=== PATIENT | female | born 1995 | race Caucasian/White ===

== ENCOUNTER 2016-08-24 21:52 | Emergency (ER) | payer OTHER ==
[2016-08-24 22:04] VITALS: TEMP 99.1
[2016-08-24 23:09] LABS: BASO % 0.5 % (0.0-2.0); EOS # 0.1 (0.0-0.7); EOS % 1.1 % (0-4.0); GRAN # 3.4 (1.4-6.5); LYMPH # 3.6 (1.2-3.4); LYMPH % 43.7 % (20.0-51.0); MEAN CELL VOLUME 82 fl (80.0-95.0); MEAN CORPUSCULAR HGB CONC 32 g/dl (33.0-37.0); MEAN PLATELET VOLUME 11.1 fl (7.4-10.4); MONO % 12.5 % (1.7-9.3); PLATELET COUNT 254 K/mm3 (130-400); RED BLOOD COUNT 4.32 M/mm3 (4.10-5.30); REDCELL DISTRIBUTION WIDTH-CV 15.6 % (11.5-14.5); WHITE BLOOD COUNT 8.2 K/mm3 (4.8-10.8)
[2016-08-24 23:10] LABS: HEMATOCRIT 35.4 % (35.0-45.0); HEMOGLOBIN 11.3 g/dl (12.0-15.0); MEAN CORPUSCULAR HEMOGLOBIN 26 pg (26.0-32.0)
[2016-08-24 23:19] LABS: ADJUSTED CALCIUM 9.7 mg/dL (8.4-10.2); ALBUMIN 4.3 gm/dL (3.5-5.0); BILIRUBIN,TOTAL 0.5 mg/dL (0.0-1.0); CALCIUM 9.9 mg/dL (8.4-10.2); CREATININE, serum 0.5 mg/dL (0.52-1.25); POTASSIUM 3.8 mmol/L (3.4-5.0); TOTAL PROTEIN 7.7 gm/dL (6.4-8.2)
[2016-08-24 23:30] LABS: PH 6 (5-8); SQUAMOUS EPITHELIAL 0-2 /hpf; URINE APPEARANCE Clear; URINE BACTERIA Rare /hpf; URINE BILIRUBIN Negative (NEGATIVE); URINE BLOOD Negative (NEGATIVE); URINE COLOR Yellow; URINE GLUCOSE Negative (NEGATIVE); URINE KETONE Negative (NEGATIVE); URINE RBC 0-2 /hpf; URINE UROBILINOGEN Negative (NEGATIVE); URINE WBC 0-2 /hpf
[2016-08-25] MEDS ORDERED: VOLTAREN 75 DR75 MG PO (00:43)
[2016-08-25 01:04] VITALS: BP 98/68; PULSE 77
[2016-08-26] MEDS ORDERED: NORCO 325 MG-51 TAB PO (15:58)
[2016-08-26] MEDS ORDERED: ZOFRAN ODT4 MG PO (15:58)
== END 2016-08-25 01:08 | disposition home or self-care (01) ==
LOC: COL.ER 21:52
PROVIDERS: Emergency Medicine
DX: R10.11 Right upper quadrant pain (principal)
CPT/HCPCS: J1170; J2550; J7030; Q9967

== ENCOUNTER 2016-08-26 12:13 | Emergency (ER) | payer OTHER ==
[~2016-08-26] VITALS: Ht 167.6 cm; Wt 68.2 kg
[~2016-08-26 12:13] MED LIST: VOLTAREN 75 DR75 MG PO
[2016-08-26 12:40] LABS: BASO % 0.4 % (0.0-2.0); EOS # 0.1 (0.0-0.7); EOS % 0.6 % (0-4.0); GRAN # 5.5 (1.4-6.5); GRAN % 64.3 % (42.2-75.2); HEMATOCRIT 38.5 % (35.0-45.0); LYMPH # 2.2 (1.2-3.4); LYMPH % 25.9 % (20.0-51.0); MEAN CELL VOLUME 83 fl (80.0-95.0); MEAN CORPUSCULAR HEMOGLOBIN 26 pg (26.0-32.0); MEAN CORPUSCULAR HGB CONC 31 g/dl (33.0-37.0); MEAN PLATELET VOLUME 10.9 fl (7.4-10.4); MONO # 0.7 (0.1-0.6); MONO % 8.3 % (1.7-9.3); PLATELET COUNT 255 K/mm3 (130-400); RED BLOOD COUNT 4.63 M/mm3 (4.10-5.30); REDCELL DISTRIBUTION WIDTH-CV 15.7 % (11.5-14.5); WHITE BLOOD COUNT 8.5 K/mm3 (4.8-10.8)
[2016-08-26 12:53] LABS: ADJUSTED CALCIUM 9.8 mg/dL (8.4-10.2); ALBUMIN 4.4 gm/dL (3.5-5.0); BILIRUBIN,TOTAL 0.7 mg/dL (0.0-1.0); CALCIUM 10.1 mg/dL (8.4-10.2); CREATININE, serum 0.56 mg/dL (0.52-1.25); POTASSIUM 3.9 mmol/L (3.4-5.0)
[2016-08-26 12:55] LABS: C-REACTIVE PROTEIN 0.5 mg/dL (0.0-0.9)
[2016-08-26] MEDS ORDERED: ZOFRAN ODT4 MG PO (15:58)
[2016-08-26] MEDS ORDERED: NORCO 325 MG-51 TAB PO (15:58)
[2016-08-26 17:02] VITALS: BP 128/76; PULSE 80; TEMP 98
== END 2016-08-26 17:05 | disposition home or self-care (01) ==
LOC: COL.ER 12:13
PROVIDERS: Emergency Medicine
DX: R10.11 Right upper quadrant pain (principal); R19.01 Right upper quadrant abdominal swelling, mass and lump
CPT/HCPCS: J2270; J2405; J7030

== ENCOUNTER 2016-08-29 13:45 | Inpatient (IN) | payer OTHER ==
[~2016-08-29] VITALS: Ht 167.6 cm; Wt 71.7 kg
[~2016-08-29 13:45] MED LIST changes: +NORCO 325 MG-51 TAB PO; +ZOFRAN ODT4 MG PO
[2016-08-31] VITALS (11 sets, daily range): BP systolic 97–129; BP diastolic 53–86; PULSE 66–78; TEMP 97–98
[2016-08-31 09:16] LABS: BASO % 0.4 % (0.0-2.0); EOS % 0.6 % (0-4.0); GRAN # 3.6 (1.4-6.5); GRAN % 52.5 % (42.2-75.2); HEMATOCRIT 40.2 % (35.0-45.0); HEMOGLOBIN 12.8 g/dl (12.0-15.0); LYMPH # 2.3 (1.2-3.4); LYMPH % 32.9 % (20.0-51.0); MEAN CELL VOLUME 81 fl (80.0-95.0); MEAN CORPUSCULAR HEMOGLOBIN 26 pg (26.0-32.0); MEAN CORPUSCULAR HGB CONC 32 g/dl (33.0-37.0); MONO # 0.9 (0.1-0.6); MONO % 13.2 % (1.7-9.3); PLATELET COUNT 267 K/mm3 (130-400); RED BLOOD COUNT 4.97 M/mm3 (4.10-5.30); REDCELL DISTRIBUTION WIDTH-CV 15.6 % (11.5-14.5); WHITE BLOOD COUNT 6.8 K/mm3 (4.8-10.8)
[2016-08-31 09:29] LABS: ADJUSTED CALCIUM 9.8 mg/dL (8.4-10.2); ALBUMIN 4.8 gm/dL (3.5-5.0); BILIRUBIN,TOTAL 0.9 mg/dL (0.0-1.0); CALCIUM 10.4 mg/dL (8.4-10.2); CREATININE, serum 0.62 mg/dL (0.52-1.25); POTASSIUM 3.9 mmol/L (3.4-5.0); TOTAL PROTEIN 8.8 gm/dL (6.4-8.2)
[2016-09-01 02:25] VITALS: BP 110/69; PULSE 67; TEMP 98.1
[2016-09-01 06:10] VITALS: BP 112/71; PULSE 87; TEMP 97.5
[2016-09-01 10:27] VITALS: BP 107/62; PULSE 78; TEMP 97.9
== END 2016-09-01 15:35 | disposition home or self-care (01) | DRG 395 ==
LOC: INPTSU 08-31 07:34 → SURG 08-31 10:00
PROVIDERS: Surgery
PROC: 8E0W4CZ Robotic Assisted Procedure of Trunk Region, Percutaneous Endoscopic Approach (ICD-10-PCS; 2016-08-31)
PROC: 0HB7XZX Excision of Abdomen Skin, External Approach, Diagnostic (ICD-10-PCS; 2016-08-31)
PROC: 0DBW4ZX Excision of Peritoneum, Percutaneous Endoscopic Approach, Diagnostic (ICD-10-PCS; principal; 2016-08-31 10:00)
DX: D20.1 Benign neoplasm of soft tissue of peritoneum (principal)
CPT/HCPCS: A4315; A9284; J0690; J1100; J1170; J1200; J1885; J2270; J2405; J2704; J2710; J3010; J7120